=== PATIENT | female | born 1970 | race African-American/Black ===

== ENCOUNTER → 2018-11-04 | Outpatient (CLI) | payer OTHER ==
[~2018-11-04] MED LIST: HYDR-3164 PO; OXYC1TAB15 PO
--- NOTE | 2018-11-04 11:19 | RAD ---
Examination: MRI of the right knee without contrast History posterior parietal medial knee pain for 2 months COMPARISON: None available FINDINGS: The anterior cruciate ligament, posterior cruciate ligament appear intact. There is increased signal identified in the body of the medial meniscus extending to the inferior articular surface likely tear. There is a horizontal increased signal identified in the posterior horn of the medial meniscus probably degenerative tear. The medial collateral ligament is intact. The lateral collateral ligament complex and the fibular collateral ligament, biceps femoris tendon, patellar tendon appear intact. The extensor mechanism is intact. There is mild superficial fraying of cartilage identified in the lateral, patellofemoral compartments. There is the feeding of cartilage identified in the weightbearing portion of the medial compartment. There is a 1.5 cm multiloculated cystic structure identified posterior to posterior cruciate ligament could be a ganglion cyst. The medial retinaculum, lateral retinaculum appear intact. Small knee joint effusion is identified. Mild diverticular edema or stress reactive change identified in the medial tibial plateau region. Mild degenerative changes medial, lateral, patellofemoral compartments. IMPRESSION: 1. Tear of the body of the medial meniscus. There is horizontal increased signal identified in the posterior horn likely degenerative tear. 2.There is a 1.5 cm multiloculated cystic structure identified posterior to posterior cruciate ligament could be a ganglion cyst. 3. Mild tricompartmental degenerative changes most in the medial compartment. Grade II chondromalacia medial compartment. Electronically signed by: Johan Elkins MD (11/04/2018 11:17 AM) [email or web address]
== END | disposition home or self-care (01) ==
LOC: MRI 09:45
PROVIDERS: ATTEND Orthopaedic Surgery
DX: S83.241A Other tear of medial meniscus, current injury, right knee, initial encounter (principal); M17.11 Unilateral primary osteoarthritis, right knee; M94.261 Chondromalacia, right knee; X58.XXXA Exposure to other specified factors, initial encounter; Y93.89 Activity, other specified; Y92.89 Other specified places as the place of occurrence of the external cause; Y99.8 Other external cause status
CPT/HCPCS: 73721

== ENCOUNTER 2018-11-27 07:21 | Day surgery (SDC) | payer OTHER ==
[~2018-11-27] VITALS: Ht 162.6 cm; Wt 105.2 kg
[~2018-11-27 07:21] MED LIST changes: +BUPIVAC MPF-EPI 0.5%-1:200000 30 ML VIAL. ONE; +BUPIVACAINE MPF 0.5% 30 ML VIAL. ONE; +EPINEPHrine VIAL 30 MG/30 ML VIAL ONE; +HYDROmorphone 2 MG/ML VIAL IV PRN; +IV RINGERS,LACTATED 1000ML 1,000 ML IV SCH; +LIDOCAINE 1% PF 2 ML VIAL. ID PRN; +MORPHINE SULFATE 2 MG/ML VIAL. IV PRN; +ONDANSETRON PF 4 MG/2 ML VIAL. IV PRN; -OXYC1TAB15 PO; +PROCHLORPERAZINE 10 MG/2 ML VIAL. IV PRN; +ceFAZolin 2GM PREMIX 2 GM/50 ML BAG IV ONE; +fentaNYL PF VIAL 100 MCG/2 ML VIAL IV PRN
[2018-11-27] MEDS ORDERED: DEXAMETHASONE SOD PHOS 4 MG/ML VIAL ONE ×2 (07:43→07:44)
[2018-11-27] MEDS ORDERED: PROPOFOL 20 ML IV ONE (07:43)
[2018-11-27] MEDS ORDERED: ONDANSETRON PF 4 MG/2 ML VIAL. ONE (07:43)
[2018-11-27] MEDS ORDERED: MIDAZOLAM HCL/PF 2 MG/2 ML VIAL. ONE (07:44)
[2018-11-27] MEDS ORDERED: fentaNYL PF VIAL 100 MCG/2 ML VIAL ONE (07:44)
[2018-11-27] MEDS ORDERED: IPRATRPIUM/ALBUTEROL 0.5/2.5MG 3 ML NEBU. NEB ONE (08:15)
[2018-11-27] MEDS ORDERED: OXYC1TAB15 PO (09:42)
--- NOTE | 2018-11-27 09:44 | DISCH ---
DISCHARGE INSTRUCTIONS Condition on Discharge Condition on Discharge: Stable Activity After Discharge Activity Instructions for Disc: Other, see below (slow advance to activity as symptomatically tolerated) Weight Bearing Status after Di: As tolerated Diet after Discharge Diet after Discharge: Regular Wound Incision Care Wound/Incision Care: Change dressing (remove dressing in 2 days may then shower no soaking until sutures removed) Contacting the after DC Call your doctor for: Concerns you may have Follow-Up Follow up with: Dr. Devries 10 days ADELE DEVRIES MD November 27, 2018 09:44
[2018-11-27] MEDS ORDERED: oxyCODONE/APAP 5/325 1 TAB TABLET PO ONE (10:30)
[2018-11-27 11:32] VITALS: BP 158/90
--- NOTE | 2018-11-27 12:41 | PDOC4 ---
Operative Note Operative Note Date of surgery, 11/27/2018 Preoperative diagnosis: Right knee medial meniscus tear Postoperative diagnosis: Same Operative procedure: Right knee arthroscopy partial medial meniscectomy Surgeon: Kayce Anesthesia: Gen. Estimated blood loss: 5 mL Consultations: None Operative indications: Please see my preoperative note for detailed operative indications and note the patient has been having some pain swelling and mechanical symptoms with MRI showing a medial meniscus tear. I had gone over with her the possibility of sedation versus operative treatment with arthroscopy removing the damaged part of the meniscus and the possible risks of infection continued pain nerve or blood vessel damage medical or other anesthetic complications among others and the fact that I cannot undo any degenerative changes that are present and those would have to be symptomatically treated on an ongoing basis. Operative text: Patient was identified procedure verified patient placed in the supine position on the operating table and the right lower extremity was prepped and draped in standard sterile fashion with a thigh tourniquet. After timeout was performed patient procedure identified and verified the right lower ex tremity was exsanguinated by Esmarch bandage tourniquet inflated to 350 mmHg a lateral portal was established a medial portal established using spinal needle localization and the knee joint was systematically examined. Patellofemoral joint was noted to be in good condition no loose bodies were noted in the gutters or suprapatellar pouch. She was found to have a displaceable tear of the posterior horn of the medial meniscus which was trimmed back to stable tissue and radiused appropriately. She also had grade 3 chondromalacia over the essentially the entire weightbearing surface of the medial femoral condyle and any loose fragments were lightly debrided. No full-thickness defect was noted in the cartilage. ACL was probed and found to be intact as was the lateral meniscus and lateral compartment cartilage. The knee joint was then drained of arthroscopic fluid portals closed with nylon suture. Injection carried out with half percent plain Marcaine sterile dressings were applied patient was returned recovery room in stable condition having tolerated procedure well toes were noted be warm pink find deflation of the tourniquet ADELE DAVIS MD November 27, 2018 12:41
== END 2018-11-27 11:32 | disposition home or self-care (01) ==
LOC: SURG 07:21
PROVIDERS: ATTEND Orthopaedic Surgery
DX: S83.231A Complex tear of medial meniscus, current injury, right knee, initial encounter (principal); M94.261 Chondromalacia, right knee; Z87.19 Personal history of other diseases of the digestive system; Z90.710 Acquired absence of both cervix and uterus; Z98.890 Other specified postprocedural states; Z93.2 Ileostomy status; Z83.3 Family history of diabetes mellitus; Z82.49 Family history of ischemic heart disease and other diseases of the circulatory system; F17.210 Nicotine dependence, cigarettes, uncomplicated; Z79.899 Other long term (current) drug therapy; X50.1XXA Overexertion from prolonged static or awkward postures, initial encounter; Y93.89 Activity, other specified; Y92.89 Other specified places as the place of occurrence of the external cause; Y99.8 Other external cause status
CPT/HCPCS: 29881; A7015; C1782; J0171; J0696; J1100; J2250; J2405; J2704; J3010; J3490; J7620

== ENCOUNTER 2019-02-16 11:14 | Emergency (ER) | payer OTHER ==
[~2019-02-16] VITALS: Ht 170.2 cm; Wt 105.2 kg
[~2019-02-16 11:14] MED LIST changes: -BUPIVAC MPF-EPI 0.5%-1:200000 30 ML VIAL. ONE; -BUPIVACAINE MPF 0.5% 30 ML VIAL. ONE; -EPINEPHrine VIAL 30 MG/30 ML VIAL ONE; -HYDROmorphone 2 MG/ML VIAL IV PRN; -IV RINGERS,LACTATED 1000ML 1,000 ML IV SCH; -LIDOCAINE 1% PF 2 ML VIAL. ID PRN; -MORPHINE SULFATE 2 MG/ML VIAL. IV PRN; -ONDANSETRON PF 4 MG/2 ML VIAL. IV PRN; +OXYC1TAB15 PO; -PROCHLORPERAZINE 10 MG/2 ML VIAL. IV PRN; -ceFAZolin 2GM PREMIX 2 GM/50 ML BAG IV ONE; -fentaNYL PF VIAL 100 MCG/2 ML VIAL IV PRN
[2019-02-16] MEDS ORDERED: amLODIPine BESYLATE 5 MG TABLET PO ONE (11:45)
--- NOTE | 2019-02-16 11:57 | PHYS DOC ---
Past Medical History Past Medical History: Diverticulosis, Hypertension, MRSA Past Surgical History: Hysterectomy, Other Additional Past Surgical Histo: prolapsed bladder repair, iliostomy Additional Information: 07/29 ppd Alcohol Use: None Drug Use: None Adult General Chief Complaint Chief Complaint: DIZZY/LIGHT HEADED HPI HPI Patient is a 48 year old female who presents the ER after near syncopal episode. Patient reports that she has been noncompliant with her hypertensive medication for the past several months. Patient reports that while at work she had acute onset of diaphoresis and shortness of breath. BP was symmetric and systolic blood pressures in the 200s. Patient states that she felt significantly lightheaded. Nonvertiginous. Patient states the symptoms are currently significantly improved. Denies any current dizziness or shortness of breath. No chest pain, palpitations, lower extremity edema, BP systolic in 140s during my evaluation Review of Systems Review of Systems Constitutional: Denies fever or chills [] Eyes: Denies change in visual acuity, redness, or eye pain [] HENT: Denies nasal congestion or sore throat [] Respiratory: Denies cough or shortness of breath [] Cardiovascular: No chest pain, no palpitations, no LE edema. GI: Denies abdominal pain, nausea, vomiting, bloody stools or diarrhea [] : Denies dysuria or hematuria [] Musculoskeletal: Denies back pain or joint pain [] Integument: Denies rash or skin lesions [] Neurologic: Denies headache, focal weakness or sensory changes [] Endocrine: Denies polyuria or polydipsia [] All other systems were reviewed and found to be within normal limits, except as documented in this note. Current Medications Current Medications Current Medications Medications (Trade) Dose Ordered Sig/Anahi Start Time Stop Time Status Last Admin Dose Admin Amlodipine Besylate (Norvasc) 5 mg 1X ONCE 02/16/19 11:45 02/16/19 11:46 DC 02/16/19 12:34 5 MG Allergies Allergies Allergies Coded Allergies Type Severity Reaction Last Updated Verified No Known Drug Allergies 11/25/18 No Physical Exam Physical Exam Constitutional: obese, anxious HENT: Normocephalic, atraumatic, Eyes: PERRLA, EOMI, Neck: Normal range of motion, no tenderness, supple, no stridor. [] Cardiovascular:Heart rate regular rhythm, no murmur [] Lungs & Thorax: Bilateral breath sounds clear to auscultation [] Abdomen: Bowel sounds normal, soft, no tenderness, no masses, no pulsatile masses. [] Skin: Warm, dry, no erythema, no rash. [] Back: No tenderness, no CVA tenderness. [] Extremities: No tenderness, ROM intact, no edema. [] Neurologic: Alert and oriented X 3, no focal deficits noted. [] Psychologic: Affect normal, judgement normal, mood normal. [] Current Patient Data Vital Signs Vital Signs Date Time Temp Pulse Resp B/P (MAP) Pulse Ox O2 Delivery O2 Flow Rate FiO2 02/16/19 13:58 76 94 02/16/19 13:28 18 02/16/19 12:34 148/85 02/16/19 11:20 98.5 Room Air 98.5 Lab Values Laboratory Tests Test 02/16/19 12:03 02/16/19 15:03 White Blood Count 6.7 x10^3/uL (4.0-11.0) Red Blood Count 5.29 x10^6/uL (3.50-5.40) Hemoglobin 14.3 g/dL (12.0-15.5) Hematocrit 41.7 % (36.0-47.0) Mean Corpuscular Volume 79 fL (79-100) Mean Corpuscular Hemoglobin 27 pg (25-35) Mean Corpuscular Hemoglobin Concent 34 g/dL (31-37) Red Cell Distribution Width 15.0 % (11.5-14.5) H Platelet Count 292 x10^3/uL (140-400) Neutrophils (%) (Auto) 62 % (31-73) Lymphocytes (%) (Auto) 31 % (24-48) Monocytes (%) (Auto) 6 % (0-9) Eosinophils (%) (Auto) 1 % (0-3) Basophils (%) (Auto) 1 % (0-3) Neutrophils # (Auto) 4.1 x10^3/uL (1.8-7.7) Lymphocytes # (Auto) 2.1 x10^3/uL (1.0-4.8) Monocytes # (Auto) 0.4 x10^3/uL (0.0-1.1) Eosinophils # (Auto) 0.1 x10^3/uL (0.0-0.7) Basophils # (Auto) 0.1 x10^3/uL (0.0-0.2) Sodium Level 140 mmol/L (136-145) Potassium Level 3.9 mmol/L (3.5-5.1) Chloride Level 104 mmol/L (98-107) Carbon Dioxide Level 24 mmol/L (21-32) Anion Gap 12 (6-14) Blood Urea Nitrogen 10 mg/dL (7-20) Creatinine 0.8 mg/dL (0.6-1.0) Estimated GFR (Cockcroft-Gault) 93.4 Glucose Level 92 mg/dL (70-99) Calcium Level 9.5 mg/dL (8.5-10.1) Troponin I Quantitative < 0.017 ng/mL (0.000-0.055) < 0.017 ng/mL (0.000-0.055) Laboratory Tests 02/16/19 12:03 Laboratory Tests 02/16/19 12:03 EKG EKG 1127: Normal sinus rhythm, heart rate 77, no significant ST segment changes.[] 1506: Normal sinus rhythm, heart rate 74, no significant ST segment changes, no significant change from previous. Radiology/Procedures Radiology/Procedures IMPRESSION: No acute cardiopulmonary process. Electronically signed by: Brad Hernandez MD (02/16/2019 12:41 PM) [email or web address] [] Course & Med Decision Making Course & Med Decision Making Pertinent Labs and Imaging studies reviewed. (See chart for details) [1545: Serial troponin and EKG reassuring. Patient has remained asymptomatic. Patient does have elevated glucose on her labs but has been drinking coffee with sugar in creamer all morning. Discussed elevated glucose and possibility of early diabetes. Advised close follow-up with PCP for fasting glucose and continued monitoring. Discussed dietary changes. Prescribed a 30 day supply of amlodipine. Patient does have health insurance and but needs to schedule an appointment to establish care with PCP. Provided with a list of local doctors. ER return precautions given. Patient verbalized understanding. All questions answered. Dragon Disclaimer Dragon Disclaimer This electronic medical record was generated, in whole or in part, using a voice recognition dictation system. Departure Departure Impression: Primary Impression: Near syncope Additional Impressions: Hypertension, uncontrolled Hyperglycemia Disposition: HOME, SELF-CARE Condition: STABLE Referrals: NO PCP (PCP) Patient Instructions: Near-Syncope Additional Instructions: Thank you for coming to [facility]. Please read the attached handouts. Please follow-up with your primary care physician. Return to the ER if your symptoms worsen or you have any other concerns. Please take your blood pressure medication as prescribed and please establish care at the primary care physician. Scripts Amlodipine Besylate (AMLODIPINE BESYLATE) 5 Mg Tablet 5 MG PO DAILY for 30 Days, #30 TAB Prov: ANGEL ERICKSON DO 02/16/19 Problem Qualifiers ANGEL ERICKSON DO Feb 16, 2019 11:56
[2019-02-16 12:14] LABS: BASO # 0.1 x10^3/uL (0.0-0.2); BASO % 1 % (0-3); EOS # 0.1 x10^3/uL (0.0-0.7); EOS % 1 % (0-3); HEMATOCRIT 41.7 % (36.0-47.0); HEMOGLOBIN 14.3 g/dL (12.0-15.5); LYMPH # 2.1 x10^3/uL (1.0-4.8); LYMPH % 31 % (24-48); MEAN CORPUSCULAR HEMOGLOBIN 27 pg (25-35); MEAN CORPUSCULAR HGB CONC 34 g/dL (31-37); MEAN CORPUSCULAR VOLUME 79 fL (79-100); MONO # 0.4 x10^3/uL (0.0-1.1); MONO % 6 % (0-9); NEUT # 4.1 x10^3/uL (1.8-7.7); NEUT % 62 % (31-73); PLATELET COUNT 292 x10^3/uL (140-400); RED BLOOD COUNT 5.29 x10^6/uL (3.50-5.40); WHITE BLOOD COUNT 6.7 x10^3/uL (4.0-11.0)
[2019-02-16 12:22] LABS: CALCIUM 9.5 mg/dL (8.5-10.1); CREATININE 0.8 mg/dL (0.6-1.0); GFR 93.4; POTASSIUM 3.9 mmol/L (3.5-5.1)
--- NOTE | 2019-02-16 12:24 | EKG ---
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
--- NOTE | 2019-02-16 12:44 | RAD ---
CHEST PA LATERAL INDICATION: Dyspnea. COMPARISON STUDY: 11/18/2011. FINDINGS: Lungs: Normal lung volume. No pulmonary mass or consolidation. The tracheobronchial tree and hilar structures are normal. Pleura: No pleural effusion or pneumothorax. Heart and Mediastinum: The cardiomediastinal silhouette is normal. The great vessels of the thorax are normal. Bones and Soft Tissues: The bones and soft tissues are within normal limits. IMPRESSION: No acute cardiopulmonary process. Electronically signed by: Brad Hernandez MD (02/16/2019 12:41 PM) [email or web address]
[2019-02-16] MEDS ORDERED: AMLO5TAB10 PO (15:06)
[2019-02-16 15:30] VITALS: BP 137/77
--- NOTE | 2019-02-16 15:46 | EKG ---
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
== END 2019-02-16 15:57 | disposition home or self-care (01) ==
LOC: ER 11:14
DX: R55 Syncope and collapse (principal); I10 Essential (primary) hypertension; R73.9 Hyperglycemia, unspecified; F17.200 Nicotine dependence, unspecified, uncomplicated; Z91.14 Patient's other noncompliance with medication regimen; Z90.710 Acquired absence of both cervix and uterus
CPT/HCPCS: 36415; 71046; 80048; 84484; 85025; 93005; 99285